=== PATIENT | male | born 1975 | race Caucasian/White ===

== ENCOUNTER 2018-10-31 23:59 | Inpatient (IN) | payer SELFPAY ==
[~2018-10-31] VITALS: Ht 167.6 cm; Wt 97.2 kg
[2018-11-01 00:49] LABS: BASOPHILS % (AUTO) 0.5 % (0.0-2.0); EOSINOPHILS % (AUTO) 1.5 % (1.0-6.0); HEMATOCRIT 44.2 % (41-53); HEMOGLOBIN 15.2 g/dL (13.5-17.5); LYMPHOCYTES # (AUTO) 2.4 K/uL (1.0-4.8); LYMPHOCYTES % (AUTO) 39.4 % (22.0-44.0); MEAN CORPUSCULAR HGB CONC 34.5 G/dL (31.0-37.0); MEAN CORPUSCULAR VOLUME 84 fL (80-100); MONOCYTES # (AUTO) 0.3 K/uL (0.1-1.0); MONOCYTES % (AUTO) 5.7 % (2.0-9.0); NEUTROPHILS # (AUTO) 3.2 K/uL (1.8-7.7); NEUTROPHILS % (AUTO) 52.9 % (40.0-70.0); PLATELET COUNT (AUTO) 246 K/uL (150-450); RED BLOOD CELL COUNT(AUTO) 5.25 MIL/uL (4.50-5.90); RED CELL DISTRIBUTION WIDTH 13.4 % (11.5-14.5)
[2018-11-01 00:58] LABS: ANION GAP 11 mmol/L (8-16); CARBON DIOXIDE 26 mmol/L (22-29); CHLORIDE 103 mmol/L (98-107); CREATININE 1.04 mg/dL (0.60-1.30); GLOMERULAR FILTR. RATE CALC > 60 mL/min (>60); GLUCOSE,RANDOM 148 mg/dL (70-110); POTASSIUM 3.2 mmol/L (3.5-5.1); SODIUM SERUM 140 mmol/L (136-145); UREA NITROGEN, BLOOD 22 mg/dL (7-18)
[2018-11-01 01:11] LABS: B-TYPE NATRIURETIC PEPTIDE < 5 pg/mL (0-100)
[2018-11-01 01:22] LABS: ALANINE AMINOTRANSFERASE 50 U/L (12-78); ALBUMIN 3.6 g/dL (3.4-5.0); ALKALINE PHOSPHATASE 73 U/L (46-116); ASPARTATE AMINOTRANSFERASE 18 U/L (15-37); BILIRUBIN,TOTAL 0.3 mg/dL (0.1-1.0); CREATINE KINASE, TOTAL ONLY 357 U/L (39-308)
[2018-11-01 03:03] LABS: APPEARANCE,URINE CLEAR (CLEAR); BILIRUBIN,URINE NEGATIVE (NEGATIVE); GLUCOSE, URINE (UA) NEGATIVE (NEGATIVE); KETONES,URINE NEGATIVE (NEGATIVE); LEUKOCYTE ESTERASE ,URINE NEGATIVE (NEGATIVE); NITRATE,URINE NEGATIVE (NEGATIVE); OCCULT BLOOD,URINE TRACE (NEGATIVE); PH,URINE 6.5 (5.0-8.0); PROTEIN,URINE NEGATIVE (NEGATIVE); UROBILINOGEN,URINE 0.2 mg/dL (<=1.0)
[2018-11-01 03:08] LABS: AMPHET/METH SCREEN,URINE NEGATIVE (NEGATIVE); BARBITURATE SCREEN, URINE NEGATIVE (NEGATIVE); BENZODIAZEPINES SCREEN,URINE NEGATIVE (NEGATIVE); CANNABINOID SCREEN,URINE NEGATIVE (NEGATIVE); COCAINE SCREEN,URINE NEGATIVE (NEGATIVE); METHADONE SCREEN, URINE NEGATIVE (NEGATIVE); OPIATE SCREEN,URINE NEGATIVE (NEGATIVE)
[2018-11-01 03:09] LABS: PHENCYCLIDINE SCREEN,URINE NEGATIVE (NEGATIVE)
[2018-11-01 03:14] LABS: BACTERIA,URINE None Seen /HPF (None Seen); RBC,URINE 0-2 /HPF (0-2); WBC,URINE 0-2 /HPF (0-5)
[2018-11-01 03:15] LABS: SQUAMOUS EPITHELIAL CELL,UR Rare /LPF (None Seen)
[2018-11-01] MEDS ORDERED: ACETAMINOPHEN 325 MG TABLET PO PRN (03:30)
[2018-11-01] MEDS ORDERED: 0.9% SODIUM CHLORIDE 10 ML SYRINGE IVP PRN ×2 (03:30→08:45)
[2018-11-01] MEDS ORDERED: ONDANSETRON HCL 4 MG/2 ML VIAL IVP PRN ×2 (03:30→08:45)
[2018-11-01] MEDS ORDERED: ZOLPIDEM TARTRATE 5 MG TABLET PO PRN (08:45)
[2018-11-01] MEDS ORDERED: METOPROLOL TARTRATE 25 MG TABLET PO SCH (09:00)
[2018-11-01] MEDS ORDERED: POTASSIUM CHLORIDE 10% 40 MEQ/30 ML LIQUID UDCUP PO ONE (09:30)
[2018-11-01] MEDS: ENOXAPARIN SODIUM 40 MG/0.4 ML PF SYRINGE SQ SCH (10:10)
[2018-11-01] MEDS: ASPIRIN 81 MG CHEWABLE TABLET PO SCH (10:11)
[2018-11-01] MEDS: NITROGLYCERIN 2% (1 GM=INCH) PACKET TP SCH ×3 (10:11→17:49)
[2018-11-01] MEDS: PANTOPRAZOLE SODIUM 40 MG/VIAL IVP SCH (10:11)
[2018-11-01] MEDS: DOCUSATE SODIUM 100 MG CAPSULE PO SCH ×2 (10:11→20:47)
[2018-11-01] MEDS: AmLODIPine BESYLATE 2.5 MG TABLET PO SCH (10:30)
[2018-11-01] MEDS ORDERED: MAGNESIUM SULFATE 4 GM/WATER 100 ML IV PRN (12:45)
[2018-11-01] MEDS ORDERED: POTASSIUM CHLORIDE 20 MEQ ER TABLET PO PRN (12:45)
[2018-11-01] MEDS ORDERED: MAGNESIUM OXIDE 400 MG TABLET PO PRN (12:45)
[2018-11-01] MEDS ORDERED: MAGNESIUM SULFATE 2 GM/WATER 50 ML IV PRN (12:45)
[2018-11-01] MEDS ORDERED: POTASSIUM CHL 10 MEQ/WATER 50 ML IV PRN (12:45)
[2018-11-01] MEDS: OxyCODONE HCL/ACETAMINOPHEN 5-325 MG TABLET PO PRN ×2 (14:05→20:47)
[2018-11-01 14:12] LABS: ALBUMIN 3.5 g/dL (3.4-5.0); MAGNESIUM 2.2 mg/dL (1.80-2.40); POTASSIUM 3.9 mmol/L (3.5-5.1)
[2018-11-01] MEDS: METOPROLOL TARTRATE 25 MG TABLET PO SCH (18:09)
[2018-11-01 21:06] VITALS: BP 147/99
[2018-11-01] MEDS ORDERED: HydrALAZINE HCL 25 MG TABLET PO PRN (23:00)
[2018-11-02] MEDS: NITROGLYCERIN 2% (1 GM=INCH) PACKET TP SCH ×3 (00:26→18:09)
[2018-11-02] MEDS: METOPROLOL TARTRATE 25 MG TABLET PO SCH ×4 (00:27→18:09)
[2018-11-02 00:29] VITALS: BP 127/78
[2018-11-02 03:22] VITALS: BP 121/60
[2018-11-02 06:14] LABS: BASOPHILS % (AUTO) 0.4 % (0.0-2.0); EOSINOPHILS % (AUTO) 1.8 % (1.0-6.0); HEMATOCRIT 44.2 % (41-53); HEMOGLOBIN 15.3 g/dL (13.5-17.5); LYMPHOCYTES # (AUTO) 2.5 K/uL (1.0-4.8); LYMPHOCYTES % (AUTO) 40.4 % (22.0-44.0); MEAN CORPUSCULAR HEMOGLOBIN 29.2 pg (26.0-34.0); MEAN CORPUSCULAR HGB CONC 34.5 G/dL (31.0-37.0); MEAN CORPUSCULAR VOLUME 85 fL (80-100); MONOCYTES # (AUTO) 0.4 K/uL (0.1-1.0); MONOCYTES % (AUTO) 5.9 % (2.0-9.0); NEUTROPHILS # (AUTO) 3.1 K/uL (1.8-7.7); NEUTROPHILS % (AUTO) 51.5 % (40.0-70.0); PLATELET COUNT (AUTO) 248 K/uL (150-450); RED BLOOD CELL COUNT(AUTO) 5.22 MIL/uL (4.50-5.90); RED CELL DISTRIBUTION WIDTH 13.4 % (11.5-14.5)
[2018-11-02 06:37] LABS: ALANINE AMINOTRANSFERASE 42 U/L (12-78); ALBUMIN 3.5 g/dL (3.4-5.0); ALKALINE PHOSPHATASE 68 U/L (46-116); ANION GAP 8 mmol/L (8-16); ASPARTATE AMINOTRANSFERASE 9 U/L (15-37); BILIRUBIN,TOTAL 0.4 mg/dL (0.1-1.0); CARBON DIOXIDE 28 mmol/L (22-29); CHLORIDE 103 mmol/L (98-107); CREATININE 0.88 mg/dL (0.60-1.30); GLOMERULAR FILTR. RATE CALC > 60 mL/min (>60); GLUCOSE,RANDOM 99 mg/dL (70-110); POTASSIUM 3.6 mmol/L (3.5-5.1); SODIUM SERUM 139 mmol/L (136-145); TOTAL PROTEIN, SERUM 6.9 g/dL (6.4-8.2); UREA NITROGEN, BLOOD 12 mg/dL (7-18)
[2018-11-02 08:11] VITALS: BP 126/78
[2018-11-02] MEDS: PANTOPRAZOLE SODIUM 40 MG/VIAL IVP SCH (08:38)
[2018-11-02] MEDS: DOCUSATE SODIUM 100 MG CAPSULE PO SCH ×2 (08:38→20:59)
[2018-11-02] MEDS: OxyCODONE HCL/ACETAMINOPHEN 5-325 MG TABLET PO PRN ×2 (08:39→21:09)
[2018-11-02] MEDS: AmLODIPine BESYLATE 2.5 MG TABLET PO SCH (08:39)
[2018-11-02] MEDS: ENOXAPARIN SODIUM 40 MG/0.4 ML PF SYRINGE SQ SCH (08:39)
[2018-11-02] MEDS: ASPIRIN 81 MG CHEWABLE TABLET PO SCH (08:39)
[2018-11-02 11:26] VITALS: BP 118/70
[2018-11-02] MEDS ORDERED: POTASSIUM CHLORIDE 10 MEQ ER TABLET PO ONE (15:00)
[2018-11-02 16:01] VITALS: BP 114/91
[2018-11-02 19:58] VITALS: BP 139/72
[2018-11-03] VITALS (8 sets, daily range): BP systolic 118–140; BP diastolic 63–99
[2018-11-03] MEDS: NITROGLYCERIN 2% (1 GM=INCH) PACKET TP SCH ×3 (00:51→16:31)
[2018-11-03] MEDS: METOPROLOL TARTRATE 25 MG TABLET PO SCH ×4 (06:41→18:10)
[2018-11-03] MEDS: ENOXAPARIN SODIUM 40 MG/0.4 ML PF SYRINGE SQ SCH (08:04)
[2018-11-03] MEDS: AmLODIPine BESYLATE 2.5 MG TABLET PO SCH (08:04)
[2018-11-03] MEDS: PANTOPRAZOLE SODIUM 40 MG/VIAL IVP SCH (08:04)
[2018-11-03] MEDS: DOCUSATE SODIUM 100 MG CAPSULE PO SCH ×2 (08:04→20:47)
[2018-11-03] MEDS: ASPIRIN 81 MG CHEWABLE TABLET PO SCH (08:04)
[2018-11-03] MEDS ORDERED: METOPROLOL TARTRATE 50 MG TABLET PO ONE (09:15)
[2018-11-03] MEDS: OxyCODONE HCL/ACETAMINOPHEN 5-325 MG TABLET PO PRN (14:20)
[2018-11-03] MEDS ORDERED: AMLO2.5T4 PO (15:45)
[2018-11-03] MEDS ORDERED: ASPI81 PO (15:45)
[2018-11-03] MEDS ORDERED: METO25 PO (15:46)
[2018-11-03] MEDS ORDERED: ATOR20TA86 PO (15:48)
[2018-11-03] MEDS: ATORVASTATIN CALCIUM 10 MG TABLET PO SCH (18:03)
[2018-11-04] MEDS: NITROGLYCERIN 2% (1 GM=INCH) PACKET TP SCH ×2 (01:30→09:30)
[2018-11-04 04:30] VITALS: BP 136/78
[2018-11-04 06:05] LABS: BASOPHILS % (AUTO) 0.8 % (0.0-2.0); EOSINOPHILS % (AUTO) 1.7 % (1.0-6.0); HEMATOCRIT 47.3 % (41-53); HEMOGLOBIN 16.3 g/dL (13.5-17.5); LYMPHOCYTES # (AUTO) 2.2 K/uL (1.0-4.8); LYMPHOCYTES % (AUTO) 39.3 % (22.0-44.0); MEAN CORPUSCULAR HEMOGLOBIN 29.3 pg (26.0-34.0); MEAN CORPUSCULAR HGB CONC 34.5 G/dL (31.0-37.0); MEAN CORPUSCULAR VOLUME 85 fL (80-100); MONOCYTES # (AUTO) 0.3 K/uL (0.1-1.0); MONOCYTES % (AUTO) 5.5 % (2.0-9.0); NEUTROPHILS # (AUTO) 2.9 K/uL (1.8-7.7); NEUTROPHILS % (AUTO) 52.7 % (40.0-70.0); PLATELET COUNT (AUTO) 233 K/uL (150-450); RED BLOOD CELL COUNT(AUTO) 5.57 MIL/uL (4.50-5.90); RED CELL DISTRIBUTION WIDTH 13.6 % (11.5-14.5)
[2018-11-04] MEDS: METOPROLOL TARTRATE 25 MG TABLET PO SCH ×3 (06:11→13:03)
[2018-11-04] MEDS: OxyCODONE HCL/ACETAMINOPHEN 5-325 MG TABLET PO PRN ×2 (06:11→14:49)
[2018-11-04 06:31] LABS: ALANINE AMINOTRANSFERASE 44 U/L (12-78); ALBUMIN 3.6 g/dL (3.4-5.0); ALKALINE PHOSPHATASE 70 U/L (46-116); ANION GAP 9 mmol/L (8-16); ASPARTATE AMINOTRANSFERASE 21 U/L (15-37); BILIRUBIN,TOTAL 0.5 mg/dL (0.1-1.0); CALCIUM, TOTAL 9.2 mg/dL (8.8-10.5); CARBON DIOXIDE 30 mmol/L (22-29); CHLORIDE 102 mmol/L (98-107); CREATININE 0.93 mg/dL (0.60-1.30); GLOMERULAR FILTR. RATE CALC > 60 mL/min (>60); GLUCOSE,RANDOM 93 mg/dL (70-110); POTASSIUM 3.8 mmol/L (3.5-5.1); SODIUM SERUM 141 mmol/L (136-145); TOTAL PROTEIN, SERUM 7.3 g/dL (6.4-8.2); UREA NITROGEN, BLOOD 17 mg/dL (7-18)
[2018-11-04] MEDS ORDERED: METOPROLOL TARTRATE 50 MG TABLET PO ONE (07:00)
[2018-11-04 07:08] VITALS: BP 139/87
[2018-11-04] MEDS: DOCUSATE SODIUM 100 MG CAPSULE PO SCH (07:44)
[2018-11-04] MEDS: ASPIRIN 81 MG CHEWABLE TABLET PO SCH (07:44)
[2018-11-04] MEDS: ATORVASTATIN CALCIUM 10 MG TABLET PO SCH (07:44)
[2018-11-04] MEDS ORDERED: SODIUM CHLORIDE 0.9% 100 ML ONE (08:07)
[2018-11-04] MEDS ORDERED: IOVERSOL 350 MG/ML 150 ML VIAL ONE (08:07)
[2018-11-04] MEDS ORDERED: NITROGLYCERIN 400 MCG/SUBLINGUAL SPRAY 4.9 GM BOTTLE SL ONE ×2 (08:13→08:42)
[2018-11-04] MEDS ORDERED: METOPROLOL TARTRATE 5 MG/5 ML VIAL ONE (08:14)
[2018-11-04] MEDS: AmLODIPine BESYLATE 2.5 MG TABLET PO SCH (09:36)
[2018-11-04] MEDS: PANTOPRAZOLE SODIUM 40 MG/VIAL IVP SCH (09:37)
[2018-11-04] MEDS: ENOXAPARIN SODIUM 40 MG/0.4 ML PF SYRINGE SQ SCH (09:37)
[2018-11-04 11:34] VITALS: BP 135/80
[2018-11-04 16:02] VITALS: BP 116/63
== END 2018-11-04 17:00 | disposition home or self-care (01) | DRG 281 ==
LOC: EMS 11-01 00:02 → 5N 11-01 17:55
PROVIDERS: ADMIT Internal Medicine; ATTEND Internal Medicine
PROC: B2211ZZ Computerized Tomography (CT Scan) of Multiple Coronary Arteries using Low Osmolar Contrast (ICD-10-PCS; principal; 2018-11-04)
DX: I21.4 Non-ST elevation (NSTEMI) myocardial infarction (principal); M62.82 Rhabdomyolysis; I20.0 Unstable angina; R55 Syncope and collapse; I10 Essential (primary) hypertension; E87.6 Hypokalemia; Z82.49 Family history of ischemic heart disease and other diseases of the circulatory system; Z83.3 Family history of diabetes mellitus
CPT/HCPCS: 70450; 72125; 75574; 83735; 84132; 93005; 93306; 93880; C9113; G0378; J1650; J3490; J7050